=== PATIENT | female | born 1985 | race Caucasian/White ===

== ENCOUNTER 2019-02-17 19:42 | Outpatient (CLI) | payer MEDICAID ==
[~2019-02-17 19:42] MED LIST: FAMO-96 PO; HYDR-3498 PO; MAG355OR15 PO; PANT40TA3 PO
--- NOTE | 2019-02-17 21:55 | PN ---
Triage Information Date/Time February 17, 2019 Reason for visit: leg swelling; r/o DVT Weeks of Gestation 34w 1d /Para 4/2 Diabetes: none Hypertention: none Additional information Pt reports swelling of the top of the right foot x 3 days. She has no swelling of the calf or thigh. She also says the right knee hurts when she walks also. PMHx: none. PSHx: x 2. NKDA. Objective BP 115/69 Heart Rate Comments Accels to 160 BPM. No decels. Contractions: None Exam 1-2+ edema of the top of the right foot only. The calf ad thich are soft and non-edematous and exactly the same size as the left leg. Results/Medications Imaging Results Doppler studies right leg are negative. BPP 8/8 with an JORGE of 12.0. Disposition: Discharge Assessment/Plan A: IUP at 34w 1d. R/o DVT; findings are negative. P: D/C home. F/U with her doctor in one week, as scheduled. kick counts reviewed. LUCAS COVINGTON MD Feb 17, 2019 21:55
--- NOTE | 2019-02-17 22:00 | TRIAGE ---
OB Triage Datetime Report Generated by CPN: 02/17/2019 22:00 Datetime: 02/17/2019 21:45 Stage of : OB Triage Datetime: 02/17/2019 21:30 Labor Evaluation Frequency: X1 Monitor Mode: External Duration (sec)2399: 40 Pattern: Normal: <= 5 Contractions in 10 Minutes Heart Rate FHR Baseline Rate: 135 Monitor Mode: External US FHR Baseline Changes: No Baseline Change Variability: Moderate 6-25 bpm Accelerations: 15X15 Category: Category I Datetime: 02/17/2019 21:14 Vaginal Exam Membrane Status: Intact Datetime: 02/17/2019 20:30 Labor Evaluation Frequency: X1 Monitor Mode: External Duration (sec)2399: 40 Pattern: Normal: <= 5 Contractions in 10 Minutes Heart Rate FHR Baseline Rate: 135 Monitor Mode: External US FHR Baseline Changes: No Baseline Change Variability: Moderate 6-25 bpm Accelerations: 15X15 Datetime: 02/17/2019 20:29 Stage of : OB Triage Temperature Route: Oral Pain Assessment Pain Scale: 0 Pain Presence: None/Denies Pain Type: N/A Datetime: 02/17/2019 20:01 Stage of : OB Triage Assessment Type: Triage Maternal Assessment Level of Consciousness: Fully Conscious DTR's/Clonus: No Clonus (Annotations: ASSESSED PATIENT RIGHT LEG AND CALF. NO REDNESS OR SWELLING P RESENT. PATIENT STATES HER SWELLING IS IN THE 'KNEE' ON THE INTERIOR SIDE. PATIENT DENIES SHE HAS EARLENE N. HOMANS SIGN IS NEGATIVE) Headache: Denies Blurred Vision: No Respiratory Effort: Unlabored; Regular Rhythm; Equal Expansion Nausea/Vomiting: Denies RUQ Epigastric Pain: Denies Lower Extremities Edema: None Upper Extremities Edema: None Facial Edema: None Fall Risk Assessment History of Falling: (0) No Secondary Diagnosis: (0) No Ambulatory Aid: (0) Bedrest/Nurse Assist IV Therapy: (0) No Gait: (0) Normal/Bedrest/Immobile Mental Status: (0) Oriented to Own Ability Fall Score: 0 Fall Risk Score Definition: No Risk: No action required Datetime: 02/17/2019 19:58 Time of Arrival: 02/17/2019 19:30 EGA: 34.1 Arrived By: Ambulatory Arrived From: Home Chief Complaint: R/O DVT PER WRITTEN OFFICE ORDERS PT. DENIES LOF, VAG BLEEDING OR PAIN Movement: Present Contractions: Denies/Absent Rupture of Membranes: Denies Vaginal Bleeding: None Vaginal Discharge: Denies Recent Sexual Intercouse: Denies Abdominal Trauma: Not Applicable Patient Complaints: None Time Provider Notified: 02/17/2019 19:46 Provider Notified: SUELLEN
== END 2019-02-17 21:45 | disposition home or self-care (01) ==
LOC: OBT 19:42 → L-D 19:43 → OBT 21:45
PROVIDERS: ATTEND Obstetrics & Gynecology
DX: O26.893 Other specified pregnancy related conditions, third trimester (principal); M79.89 Other specified soft tissue disorders; Z3A.34 34 weeks gestation of pregnancy
CPT/HCPCS: 76818; 93971; Z7500; G0463

== ENCOUNTER 2019-03-08 03:38 | Inpatient (IN) | payer MEDICAID ==
[~2019-03-08] VITALS: Ht 165.1 cm; Wt 75.9 kg
[2019-03-08] MEDS ORDERED: MISOPROSTOL 200 MCG TAB PR PRN ×2 (05:00→17:00)
[2019-03-08] MEDS ORDERED: CEFAZOLIN 2 GM/50 ML (PMX) 50 ML IVPB SCH (05:00)
[2019-03-08] MEDS ORDERED: METHYLERGONOVINE 0.2 MG INJ IM PRN ×2 (05:00→17:00)
[2019-03-08] MEDS ORDERED: OXYTOCIN 30 UNITS/LR 500 ML IV PRN ×2 (05:00→17:00)
[2019-03-08] MEDS ORDERED: OXYTOCIN 30 UNITS/LR 500 ML IV SCH (05:00)
[2019-03-08] MEDS ORDERED: CARBOPROST 250 MCG INJ IM PRN ×2 (05:00→17:00)
[2019-03-08] MEDS: LACTATED RINGER'S 1,000 ML IV SCH ×3 (05:24→16:31)
--- NOTE | 2019-03-08 06:18 | TRIAGE ---
OB Triage Datetime Report Generated by CPN: 03/08/2019 06:17 Datetime: 03/08/2019 05:47 Membrane Status: Ruptured Datetime: 03/08/2019 04:20 Stage of : OB Triage Pattern: Normal: <= 5 Contractions in 10 Minutes Resting Tone [place]: Relaxed Heart Rate FHR Baseline Rate: 150 Monitor Mode: External US FHR Baseline Changes: No Baseline Change Variability: Moderate 6-25 bpm Accelerations: 15X15 Decelerations: Variable Category: Category II Datetime: 03/08/2019 04:12 Stage of : OB Triage Labor Evaluation Monitor Mode: External Quality: Mild Pattern: Normal: <= 5 Contractions in 10 Minutes Resting Tone [place]: Relaxed Heart Rate FHR Baseline Rate: 140 Monitor Mode: External US FHR Baseline Changes: No Baseline Change Variability: Moderate 6-25 bpm Accelerations: 15X15 Decelerations: None Category: Category I Vaginal Exam Dilatation (cms): 1.0 Effacement (%): 70 Station: -2 Exam By: Rony Cuevas Amniotic Fluid Color: Clear Amniotic Fluid Amount: Moderate Amniotic Fluid Odor: Normal Vaginal Bleeding: None Nitrazine: Positive Cervix, Consistency: Soft Cervix, Position: Posterior Presentation 'A': Cephalic Datetime: 03/08/2019 04:00 Time of Arrival: 03/08/2019 03:28 EGA: 36.6 Arrived By: Wheelchair Arrived From: Home Chief Complaint: w/ hx c/s x2 c/o lg gush of fluid at 0300 Movement: Present Contractions: Denies/Absent Rupture of Membranes: Ruptured Vaginal Bleeding: None Vaginal Discharge: Present Recent Sexual Intercouse: Denies Abdominal Trauma: Not Applicable Patient Complaints: Other Time Provider Notified: 03/08/2019 04:20 Provider Notified: Dr Felton Initial Plan: EFM, SVE,ROM+,BPP,EFW,PIH LABS Datetime: 03/08/2019 03:47 Stage of : OB Triage Maternal Assessment Level of Consciousness: Fully Conscious DTR's/Clonus: DTRs 3+; No Clonus Headache: Denies Blurred Vision: No Nausea/Vomiting: Denies RUQ Epigastric Pain: Denies Facial Edema: None Labor Evaluation Monitor Mode: External Resting Tone [place]: Relaxed Heart Rate FHR Baseline Rate: 140 Monitor Mode: External US Pain Assessment Pain Scale: 0 Pain Presence: None/Denies Datetime: 02/17/2019 20:01 Fall Risk Assessment Fall Score: 0 Fall Risk Score Definition: No Risk: No action required Datetime: 02/17/2019 19:58 EGA: 34.1
[2019-03-08] MEDS ORDERED: AMPICILLIN 2 GM/NS (PMX) 100 ML IVPB ONE (06:30)
[2019-03-08 08:30] VITALS: Ht 165.1 cm; Wt 75.9 kg
[2019-03-08 08:31] VITALS: BP 116/71; PULSE 87; RESP 18
[2019-03-08] MEDS ORDERED: OXYTOCIN 30 UNITS/LR 500 ML BAG IV ONE (10:00)
[2019-03-08] MEDS ORDERED: AZITHROMYCIN 500MG/NS (PMX) 250 ML IV SCH (10:00)
[2019-03-08] MEDS ORDERED: ONDANSETRON 4 MG INJ ONE (10:20)
[2019-03-08] MEDS ORDERED: OXYTOCIN 10 UNIT INJ ONE (10:20)
[2019-03-08] MEDS ORDERED: morphine SULFATE/PF (10 MG/10 ML) INJ ONE (10:20)
[2019-03-08] MEDS ORDERED: AMPICILLIN 1 GM/NS (PMX) 50 ML IVPB SCH (10:30)
--- NOTE | 2019-03-08 10:37 | PREAC ---
Date/Time of Note Date/Time of Note DATE: 03/08/19 TIME: 10:35 Anesthesia Eval and Record Evaluation Time Pre-Procedure Interview DATE: 03/08/19 TIME: 10:35 Age 33 Sex female NPO: 8 hrs Preoperative diagnosis IUP Planned procedure Repeat Csection Past Medical History Past Medical History: None Surgery & Anesthesia Issues No known issue Meds Anticoagulation: No Beta Martin within 24 hr: No Reason Beta Martin not given: Pt. not on B-Martin No Active Prescriptions or Reported Meds Current Medications Lactated Ringer's 1,000 ml @ 125 mls/hr Q8H IV Last administered on 03/08/19at 05:24; Admin Dose 125 MLS/HR; Start 03/08/19 at 04:46 Cefazolin Sodium/ Dextrose 50 ml @ 100 mls/hr ONCE IVPB ; Start 03/08/19 at 05:00 Oxytocin/Lactated Ringer's 500 ml @ 125 mls/hr POST IV ; Start 03/08/19 at 05:00 Oxytocin/Lactated Ringer's 500 ml @ 0 mls/hr ONCE PRN IV .VAGINAL BLEEDING; Start 03/08/19 at 05:00 Methylergonovine Maleate (Methergine) 0.2 mg ONCE PRN IM .VAGINAL BLEEDING; Start 03/08/19 at 05:00 Carboprost Tromethamine (Hemabate) 250 mcg ONCE PRN IM .VAGINAL BLEEDING; Start 03/08/19 at 05:00 Misoprostol (Cytotec) 1,000 mcg ONCE PRN IA .VAGINAL BLEEDING; Start 03/08/19 at 05:00 Ampicillin 50 ml @ 100 mls/hr Q4H IVPB ; Start 03/08/19 at 10:30 Azithromycin 250 ml @ 250 mls/hr ONCE IV ; Start 03/08/19 at 10:00 Meds reviewed: Yes Allergies Coded Allergies: No Known Drug Allergy (Unverified Allergy, Unknown, UNKNOWN, 06/06/15) Allergies Reviewed: Yes Labs/Studies Labs Reviewed: Reviewed by anesthesiologist Result Diagram: 03/08/1920 03/08/1920 Laboratory Tests 03/08/19 05:20 Blood Bank Test 03/08/19 05:20 Antibody Screen NEGATIVE Blood Type A POSITIVE Rh Immune Globulin Candidate NO test: Positive Pre-procedure Exam Last vitals Vital Signs Date Temp Pulse Resp B/P (MAP) Pulse Ox O2 O2 Flow FiO2 Time Delivery Rate 03/08/19 98.0 87 18 116/71 Room Air 08:31 (86) Airway: Adequate mouth opening, Adequate thyromental dist Mallampati: Mallampati II Teeth: Normal Lung: Normal Heart: Normal ASA Physical Status ASA physical status: 2 Emergency: None Planned Anesthetic Neuraxial: Epidural Planned Pain Management Sub-arachniod narcotics, Parenteral pain med Pre-operative Attestations Prior to commencing anesthesia and surgery, the patient was re-evaluated, there was verification of: *The patient's identity *The results of appropriate recent lab work and preoperative vital signs *The above evaluation not changing prior to induction *Anesthetic plan, risk benefits, alternative and complications discussed with patient/family; questions answered; patient/family understands, accepts and wishes to proceed. DEIRDRE OLIVEIRA MD March 08, 2019 10:37
[2019-03-08] MEDS ORDERED: FENTAnyl 50 MCG/ML VIAL ONE (10:59)
[2019-03-08] MEDS ORDERED: MIDAZOLAM 1 MG/ML 2 ML INJ ONE (10:59)
[2019-03-08] MEDS ORDERED: PHENYLephrine 10 MG INJ ONE (11:01)
--- NOTE | 2019-03-08 11:43 | HP ---
Date/Time of Note Date/Time of Note DATE: 03/08/19 TIME: 11:40 OB - History Hx of Present Free Text/Dictation 33-year-old female 4 para 2 AB 1 at 36 weeks and 6 days gestation admitted complaining of spontaneous rupture of membrane at 3:30 AM and onset of labor contractions at 6 AM Chief Complaint: Spontaneous rupture of membrane Last Menstrual Period: Aug 21, 2018 Estimated Due Date: Mar 30, 2019 : 4 Para: 2 Spontaneous : 1 Care: Good Care Ultrasounds: Normal mid trimester US Obstetrical Complications: None Medical Complications: None, Other (Previous x2) Past Family/Social History * Past Medical, Surgical, Family and Obstetric Histories reviewed from chart. Blood Type: A+ Rubella: immune RPR/VDRL: Negative GBS Status: Positive HBsAG: Negative OB Admission Exam Vital Signs Vital Signs Vital Signs Date Temp Pulse Resp B/P (MAP) Pulse Ox O2 O2 Flow FiO2 Time Delivery Rate 03/08/19 98.0 87 18 116/71 Room Air 08:31 (86) Physical Exam HEENT: WNL Heart: Rhythm Normal Lungs: Clear, Equal Abdomen: WNL Extremities: Normal Reflexes: Normal Cervical Dilatation: 3cm Effacement: 75% Station: -2 Membranes: Ruptured Amniotic Fluid: Clear Heart Rate: 140's Accelerations: Accelerations Present Decelerations: No Decelerations Varibility: Marked Contractions on Admission: 6-10 Minutes Apart Date/Time Contractions Began: 03/08/2019 at 6 AM Frequency of Contractions: Every 6 to 10 minutes Duration: Over 60 seconds Intensity: Moderate Last 72 hours Lab Results CBC & BMP 03/08/19 05:20 Liver Function Test 03/08/19 05:20 Alanine Aminotransferase (ALT/SGPT) 35 Albumin 3.6 Alkaline Phosphatase 179 H Aspartate Amino Transf (AST/SGOT) 33 Direct Bilirubin 0.00 Total Protein 6.7 OB Assessment/Plan Reason for admission: rupture of membranes Other Assessment: 36 weeks and 6 days gestation Previous x2 Rupture of membrane was confirmed by ROM plus test Other plan: We will proceed with repeating the MIKAYLA DALEY MD March 08, 2019 11:43
[2019-03-08] MEDS ORDERED: KETOROLAC 30 MG INJ IV STA (11:49)
[2019-03-08] MEDS ORDERED: ACETAMINOPHEN 500 MG TAB PO STA (11:49)
--- NOTE | 2019-03-08 11:49 | OPR ---
Operative Report Planned Procedure Procedure date March 08, 2019 Procedure(s) Repeat section Performed by see signature line Radiochemical Technician: SAURABH FISHER MD Anesthesiologist: DEIRDRE OLIVEIRA MD Pre-procedure diagnosis 36 weeks and 6 days gestation Previous x2 Labor contractions Spontaneous rupture of the membranes [id number] Anesthesia Type: Kbubi5u spinal Post-Procedure Post-procedure diagnosis Status post Status post lysis of omental adhesions Findings Live Baby in [place] position Clear amniotic fluid Normal-appearing right and left fallopian tubes and ovaries Bicornuate uterus Omental adhesion to bladder dome and anterior abdominal wall which were released Estimated Blood Loss: 500 - 600 mls Specimen(s) none Grafts/Implant(s) none Complication(s) none Pt Condition post procedure: stable Disposition: PACU Procedure Description Under satisfactory anaesthesia a Pfannenstiel incision was made two fingerbreadth above and parallel to the symphysis of pubis around the previous scar and previous scar was removed Incision was extended laterally to the border of the Recti muscles on either sides. Incision was carried down with sharp and blunt dissection until fascia was reached. Anterior Recti muscle fascia was incised in mid portion and incision extended laterally to the border of skin incision. Fascia was mobilized from muscle superiorly and Recti muscles were from midline using sharp and blunt dissection. Peritoneum was visualized; Avoiding bowel and bladder it was incised . Incision was extended superiorly and inferiorly. Bladder blade was placed. Omental adhesion to bladder dome and anterior abdominal wall were lysed and ligated using 0 Vicryl stitch. Posterior peritoneum covering the lower segment of the uterus and lower segment of the uterus were incised.Low transverse uterine incision was made on lower segment of the uterus. Incision extended laterally to the border of Round Lig. on either sides and baby was delivered from OT. position . Amniotic fluid appeared clear. Cord blood was obtained and cord had 3 vessels . Placenta was delivered spontaneously and appeared intact and complete. Intrauterine cavity was rubbed with a laparotomy sponge. Bicornuate uterus was noticed and uterus had a septum on the fundus of the uterus extending down to the midportion of the uterus and was in left side of the uterus, Uterine incision was closed in 2 layers using running stitches of No1 Monocryl. Hemostasis appeared secure. Ovaries and Fallopian tubes were within normal limits. Announcing needle, lap sponge and instrument count to be correct abdomen was closed in layers as follows: Peritoneum and Recti muscles with running stitches of 2-0 Vicryl. Fascia with running stitch of No 1 PDS. Subcutaneous tissue with running stitches of 2-0 Monocryl and skin was closed using laverne. Patient tolerated the procedure well and was transferred to [facility] in good condition. MIKAYLA DALEY MD March 08, 2019 11:49
--- NOTE | 2019-03-08 11:57 | PAC ---
Date/Time of Note Date/Time of Note DATE: 03/08/19 TIME: 11:56 Post-Anesthesia Notes Post-Anesthesia Note Last documented vital signs Vital Signs Date Temp Pulse Resp B/P (MAP) Pulse Ox O2 O2 Flow FiO2 Time Delivery Rate 03/08/19 98.0 87 18 116/71 Room Air 08:31 (86) Activity: WNL Respiratory function: WNL Cardiovascular function: WNL Mental status: Baseline Pain reasonably controlled: Yes Hydration appropriate: Yes Nausea/Vomiting absent: Yes Comments BP:126/67, P:78, Spo2:100, T:98,8 DEIRDRE OLIVEIRA MD March 08, 2019 11:57
[2019-03-08] MEDS ORDERED: METOCLOPRAMIDE 10 MG INJ IV PRN (12:00)
[2019-03-08] MEDS ORDERED: KETOROLAC 30 MG INJ IV PRN ×2 (12:00→16:30)
[2019-03-08] MEDS ORDERED: MEPERIDINE 25 MG INJ IV PRN (12:00)
[2019-03-08] MEDS ORDERED: NALOXONE (0.4 MG/ML) INJ IV PRN ×2 (12:00→16:30)
[2019-03-08] MEDS ORDERED: DIPHENHYDRAMINE 50 MG INJ IV PRN ×2 (12:00→16:30)
[2019-03-08] MEDS ORDERED: ONDANSETRON 4 MG INJ IV PRN ×2 (12:00→16:30)
[2019-03-08 14:35] VITALS: BP 109/63; PULSE 89; RESP 18
[2019-03-08] MEDS ORDERED: morphine 2 MG INJ IV PRN (16:30)
[2019-03-08] MEDS ORDERED: NA PHOSPHATE/BIPHOS 133 ML ENEMA PR PRN (17:00)
[2019-03-08] MEDS ORDERED: HYDROCODONE/APAP (5/325) TAB PO PRN (17:00)
[2019-03-08] MEDS ORDERED: LANOLIN HPA 1 PKT TOP PRN (17:00)
[2019-03-08] MEDS: CLINDAMYCIN 300 MG CAP PO SCH ×2 (17:39→23:37)
[2019-03-08] MEDS: CEFAZOLIN 2 GM/50 ML (PMX) 50 ML IVPB SCH (17:47)
[2019-03-08 19:40] VITALS: BP 101/52; PULSE 89; RESP 19
[2019-03-08] MEDS: SENNA/DOCUSATE NA (8.6MG/50MG) TAB PO SCH (20:48)
[2019-03-09] MEDS: CEFAZOLIN 2 GM/50 ML (PMX) 50 ML IVPB SCH ×2 (01:15→10:03)
[2019-03-09 03:00] VITALS: BP 100/50; PULSE 99; RESP 21
[2019-03-09] MEDS: LACTATED RINGER'S 1,000 ML IV SCH ×2 (04:51→08:31)
[2019-03-09] MEDS: CLINDAMYCIN 300 MG CAP PO SCH ×3 (05:19→19:02)
[2019-03-09 07:45] VITALS: BP 112/69; PULSE 68; RESP 18
[2019-03-09] MEDS ORDERED: BISACODYL 10 MG SUPP PR ONE ×2 (10:00→21:30)
[2019-03-09] MEDS: SENNA/DOCUSATE NA (8.6MG/50MG) TAB PO SCH ×2 (10:03→21:37)
[2019-03-09] MEDS: OXYCODONE/ACETAMINOPHEN (5/325) TAB PO PRN (12:01)
[2019-03-09 12:30] VITALS: BP 107/60; PULSE 109; RESP 19
[2019-03-09] MEDS: IBUPROFEN 800 MG TAB PO SCH ×2 (17:09→21:37)
[2019-03-09 20:30] VITALS: BP 103/58; PULSE 104; RESP 18
[2019-03-10] MEDS: CLINDAMYCIN 300 MG CAP PO SCH ×5 (00:23→23:25)
[2019-03-10] MEDS: OXYCODONE/ACETAMINOPHEN (5/325) TAB PO PRN (02:19)
[2019-03-10 04:00] VITALS: BP 101/58; PULSE 85; RESP 18
[2019-03-10] MEDS: IBUPROFEN 800 MG TAB PO SCH ×3 (05:10→21:30)
[2019-03-10 08:00] VITALS: BP 99/56; PULSE 81; RESP 18
[2019-03-10] MEDS: SENNA/DOCUSATE NA (8.6MG/50MG) TAB PO SCH ×2 (09:50→21:31)
[2019-03-10 16:00] VITALS: BP 106/61; PULSE 102; RESP 20
--- NOTE | 2019-03-10 16:14 | PN ---
Date/Time of Note Date/Time of Note DATE: 03/09/19 Late entry Assessment/Plan VTE Prophylaxis VTE Prophylaxis Intervention: ambulation Lines/Catheters IV Catheter Type (from Nrsg): Saline Lock Assessment/Plan Assessment/Plan Status post postop day #1 Advance diet and ambulate Continue to monitor vital signs Subjective 24 Hr Interval Summary Passing flatus but no bowel movement Constitutional: no complaints, improved, ambulates, BM, flatus, urine output Pain Control: well controlled Exam/Review of Systems Vital Signs Vitals Vital Signs Date Temp Pulse Resp B/P (MAP) Pulse Ox O2 O2 Flow FiO2 Time Delivery Rate 03/10/19 98.4 102 20 106/61 16:00 (76) 03/10/19 Room Air 08:00 03/09/19 99 12:30 Intake and Output 03/09/19 03/09/19 03/10/19 1515:00 23:00 07:00 IntakeIntake Total 2300 ml OutputOutput Total 900 ml 1250 ml BalanceBalance 1400 ml -1250 ml Exam Free Text/Dictation Abdomen is soft and nontender and not distended with present bowel sounds Incision is covered Constitutional: alert, oriented, well developed Psych: no complaints, nl mood/affect Head: normocephalic, atraumatic Eyes: nl conjunctiva, EOMI, nl lids, nl sclera ENMT: nl external ears & nose, nl lips & teeth, nl nasal mucosa & septum, mucosa pink and moist Neck: supple, non-tender Respiratory: clear to auscultation, normal air movement Cardiovascular: regular rate and rhythm, nl pulses Gastrointestinal: soft, nl liver, spleen, non-tender Musculoskeletal: nl extremities to inspection, nl gait and stance Extremities: normal pulses Neurological: BACKHAUL DRIVER II-XII intact, nl mental status, nl speech, nl strength Skin: nl turgor, rash or lesions Lymph: nl lymph nodes Results Result Diagram: 03/09/19 0741 03/08/19 0520 MIKAYLA DALEY MD March 10, 2019 16:14
--- NOTE | 2019-03-10 16:46 | DS ---
Date/Time of Note Date/Time of Note Home today or next day DATE: 03/10/19 TIME: 16:44 Obstetrical Discharge Record Final Diagnosis Final Diagnosis: delivered Other Final Diagnosis Status post Section Section: Repeat Complications Other ( labor and spontaneous rupture of membrane) Condition on Discharge Physical Assessment Last Vitals: Nurse's notes Voiding: Yes Bowel Movement: Yes Breast: Soft, non-tender, Filling Fundus: Firm Abdomen and Incision: Abdomen is soft with present bowel sounds Incision is healing well without induration and erythema Calf Tenderness: No Patient Condition: Good MIKALYA DALEY MD March 10, 2019 16:45
--- NOTE | 2019-03-10 16:47 | DS ---
Date/Time of Note Date/Time of Note DATE: 03/10/19 TIME: 16:46 Discharge Summary Admission/Discharge Info Admit Date/Time March 08, 2019 at 04:20 Discharge Date/Time March 10 or March 11, 2019 Discharge Diagnosis Status post Patient Condition: Good Procedures Repeat section at 36+ weeks Hx of Present Illness 34-year-old female admitted with labor and underwent repeat section at 36+ weeks after confirmation with spontaneous rupture of membrane Noticed to have bicornuate uterus during the operation Hospital Course Uncomplicated Home Meds No Active Prescriptions or Reported Meds Follow-up Plan To 3 days in clinic for staple removal Primary Care Provider Care Physician No Primary Time spent on discharge: > 30 minutes Pending Labs Laboratory Tests Test 03/10/19 07:08 Lab Scanned Report REFERENCE LAB [id number] MIKAYLA DALEY MD March 10, 2019 16:47
--- NOTE | 2019-03-10 16:48 | PD.PPDC ---
MUNICIPAL CLERK Discharge Instruction Provider Information Physician Information 33-year-old female underwent repeat at 36+ weeks and noticed bicornuate uterus Diagnosis [id number] Final Diagnosis: [id number] Status post Condition [id number] Patient Condition: Pzfem4p Good Diet Chkmg7Wt Diet: Wdnvi7a Resume Regular Diet Activity/Restrictions Nlpdy1Ax Activity: Jvcit3q May Shower Sjror6Ug Restrictions: Nxiuz2d No Exercising No Lifting Nothing in the Vagina Pskra5Yh Return to Work or School: Hhymd6y May 12, 2019 Follow-up Follow-up with Physician: 2, 3, Day/Days (In clinic for staple removal) Return to clinic for Oddyu1Yi MEAT DEPARTMENT MANAGER Instructions: Seyqg2w Fever greater than 101 Chills Hpiwl0Zm OB Instructions: Hjryu2x Breast Tenderness Depression Comment: Pelvic rest no hard activity for 2 months [id number] Surgical Instructions: Lquij3y Incisional Drainage Incisional Redness MIKAYLA DALEY MD March 10, 2019 16:48
[2019-03-10] MEDS ORDERED: IBUP800T48 PO (16:49)
[2019-03-10] MEDS ORDERED: ACET325T33 PO (16:54)
[2019-03-10] MEDS ORDERED: ACETAMINOPHEN 325 MG TAB PO PRN (17:00)
[2019-03-10 20:15] VITALS: BP 104/68; PULSE 93; RESP 17
[2019-03-11 03:50] VITALS: BP 113/74; PULSE 79; RESP 17
[2019-03-11] MEDS: IBUPROFEN 800 MG TAB PO SCH ×2 (05:34→14:21)
[2019-03-11] MEDS: CLINDAMYCIN 300 MG CAP PO SCH ×2 (05:34→12:09)
[2019-03-11 08:00] VITALS: BP 104/69; PULSE 77; RESP 18
[2019-03-11] MEDS ORDERED: MEASLES,MUMPS,RUBELLA VACCINE INJ SC* ONE (09:00)
[2019-03-11] MEDS ORDERED: DIPHTH/TET/ACEL PERTUSS (ADULT) 0.5 ML VIAL IM* ONE (09:00)
[2019-03-11] MEDS: SENNA/DOCUSATE NA (8.6MG/50MG) TAB PO SCH (10:03)
[2019-03-11] MEDS: OXYCODONE/ACETAMINOPHEN (5/325) TAB PO PRN (11:23)
--- NOTE | 2019-03-12 16:39 | DELSUM ---
Delivery Summary A-C Datetime Report Generated by CPN: 03/12/2019 16:38 DELIVERY PERSONNEL Technology Internship: GHULAM, BRIANNA MATERNAL INFORMATION Delivery Anesthesia: Spinal Medications in Delivery: SEE ANESTHIA RECORD Delivery QBL (ml): 700 Placenta Cultured: No Maternal Complications: None LABOR SUMMARY EDC: 03/30/2019 00:00 No. Babies in Womb: 1 Attempted: No Labor Anesthesia: None LABOR INFORMATION Reason for Induction: Not Applicable Onset of Labor: 03/08/2019 03:00 Oxytocin: N/A Group B Beta Strep: Positive Antibiotics # of Doses: 3 Antibiotics Time of Last Dose: 03/08/2019 10:30 Steroids Given: None Reason Steroids Not Administered: Not Applicable MEMBRANES Membranes Rupture Method: Spontaneous Rupture of Membranes: 03/08/2019 03:00 Length of Rupture (hr): 7.97 Amniotic Fluid Color: Clear Amniotic Fluid Amount: Scant Amniotic Fluid Odor: None STAGES OF LABOR Stage 3 hr: 0 Stage 3 min: 1 Total Time in Labor hr: 7 Total Time in Labor min: 59 CSECTION DELIVERY Primary Indication: REPEAT CESEREAN SECTION Secondary Indication: Repeat Elective CSection Urgency: Elective CSection Incidence: Repeat Labor: Labor Elective: Elective CSection Incision: Lower Uterine Transverse BABY A INFORMATION Delivery Date/Time: 03/08/2019 10:58 Method of Delivery: Born in Route : No : N/A Forceps: N/A Vacuum Extraction: Successful Shoulder Dystocia : Yes ASSISTED DELIVERY BABY A Indication for Assisted Delivery: REPEAT C/S Catheter Prior to Procedure: Yes Vacuum Number of Pulls: 1 Vacuum Number of PopOffs: 0 Vacuum Product Safety Officer: KIWI Vacuum/Forceps Comment: KIWI USED BY OB DURING REPEAT C/S. SHOULDER DYSTOCIA BABY A Infant Delivery Date/Time: 03/08/2019 10:58 PRESENTATION/POSITION BABY A Presentation: Cephalic Cephalic Presentation: Vertex Breech Presentation: N/A PLACENTA INFORMATION BABY A Placenta Delivery Time : 03/08/2019 10:59 Placenta Method of Delivery: Manual Removal Placenta Status: Delivered SCORES BABY A Heart Rate 1 min: >100 bpm Resp Effort 1 min: Good Cry Reflex Irritability 1 min: Cough/Sneeze/Pulls Away Muscle Tone 1 min: Active Motion Color 1 min: Body [place], Extremit Blue Resuscitation Effort 1 min: Tactile Stimulation SCORE 1 MIN: 9 Heart Rate 5 min: >100 bpm Resp Effort 5 min: Good Cry Reflex Irritability 5 min: Cough/Sneeze/Pulls Away Muscle Tone 5 min: Active Motion Color 5 min: Body [place], Extremit Blue Resuscitation Effort 5 min: Tactile Stimulation SCORE 5 MIN: 9 INFORMATION BABY A Gestational Age at Delivery: 36.6 Gestational Status: Late - 34- 36.6 Weeks Infant Outcome : Liveborn Condition : Fair Sex: Male IDENTIFICATION/MEDS BABY A ID Band Number: [id number] ID Band Location: Right Leg; Left Arm Sensor Applied: Yes Sensor Number: [id number] Sensor Location : Cord Clamp Vitamin K Given : Not Given Erythromycin Given: Not Given WEIGHT/LENGTH BABY A Birthweight (gm): 3105 Infant Weight (lb): 6 Infant Weight (oz): 14 Infant Length (in): 19.00 Infant Length (cm): 48.26 CORD INFORMATION BABY A No. Cord Vessels: 3 Nuchal Cord : N/A Cord Blood Taken: Yes Suction: Mouth; Nose ASSESSMENT BABY A Infant Complications: None Physical Findings at Delivery: Within Normal Limits Infant Respirations: Appears Normal Applications Project Manager/ALS Called : Yes Care By: RT/RN Transferred To: Remains with Mother
== END 2019-03-11 16:38 | disposition home or self-care (01) | DRG 788 ==
LOC: L-D 03:38 → OBT 03:38 → L-D 04:20 → OBT 04:20 → L-D 09:30 → PP1 14:31
PROVIDERS: ADMIT Obstetrics & Gynecology; ATTEND Obstetrics & Gynecology
PROC: 10D00Z1 Extraction of Products of Conception, Low, Open Approach (ICD-10-PCS; principal; 2019-03-08 11:00)
DX: O60.13X0 Preterm labor second trimester with preterm delivery third trimester, not applicable or unspecified (principal); O34.211 Maternal care for low transverse scar from previous cesarean delivery; Z3A.36 36 weeks gestation of pregnancy; Z37.0 Single live birth
CPT/HCPCS: 76815; 76818; 80053; 84112; 84560; 85025; 85610; 85730; 86592; 86850; 86900; 86901; 87340; 99464; G0463; J0290; J0456; J0690; J1885; J2250; J2274; J2405; J2590; J3010; J7120